=== PATIENT | male | born 1985 | race Two or more races ===

== ENCOUNTER 2020-07-15 11:59 | Emergency (ER) | payer MEDICAID ==
[~2020-07-15] VITALS: Ht 170.2 cm; Wt 86.4 kg
[2020-07-15 12:06] VITALS: BP 128/90
--- NOTE | 2020-07-15 13:35 | NUR ---
PT AMBULATES WITH SLOW BUT STEADY GAIT TO HALLWAY ROOM. PT EDUCATED ON ER PROCESS AND POC AND VERBALIZES UNDERSTANDING. AWAITING ERP FOR HISTORY AND ASSESSMENT AT THIS TIME.
[2020-07-15] MEDS ORDERED: KETOROLAC 30 MG/1 ML IM ONE (15:00)
[2020-07-15] MEDS ORDERED: KETOROLAC 60 MG/2 ML ONE (15:04)
--- NOTE | 2020-07-15 15:08 | NUR ---
pt medicated per mar at this time.
--- NOTE | 2020-07-15 16:02 | NUR ---
PT D/C WITH D/C SUMMARY AND SCRIPTS. ALL QUESTIONS ANSWERED. PT AMBULATES TO REGISTATION DESK WITH STEADY GAIT, AND DENIES ANY OTHER NEEDS PERTAINING TO THIS VISIT.
== END 2020-07-15 16:05 | disposition home or self-care (01) ==
LOC: ED 15:45
DX: S16.1XXA Strain of muscle, fascia and tendon at neck level, initial encounter (principal); W00.0XXA Fall on same level due to ice and snow, initial encounter; Y93.89 Activity, other specified; Y92.89 Other specified places as the place of occurrence of the external cause; Y99.8 Other external cause status
CPT/HCPCS: 72125; 99284